=== PATIENT | female | born 1970 | race Caucasian/White ===

== ENCOUNTER 2017-06-25 19:32 | Emergency (ER) | payer OTHER ==
[~2017-06-25] VITALS: Ht 167.6 cm; Wt 72.6 kg
[2017-06-25] MEDS ORDERED: IV NORMAL SALINE 1000ML BAG 1,000 ML IV ONE (19:45)
[2017-06-25] MEDS ORDERED: HALOPERIDOL LACTATE 5 MG/ML VIAL. IVP ONE ×2 (19:45→21:00)
[2017-06-25 19:53] LABS: HEMATOCRIT 42.9 % (36.0-47.0); HEMOGLOBIN 14.6 g/dL (12.0-15.5); RED BLOOD COUNT 4.93 x10^6/uL (3.50-5.40); WHITE BLOOD COUNT 9.6 x10^3/uL (4.0-11.0)
[2017-06-25 19:54] LABS: BASO # 0.1 x10^3/uL (0.0-0.2); BASO % 1 % (0-3); EOS % 2 % (0-3); LYMPH # 1.5 x10^3/uL (1.0-4.8); LYMPH % 16 % (24-48); MEAN CORPUSCULAR HEMOGLOBIN 30 pg (25-35); MEAN CORPUSCULAR HGB CONC 34 g/dL (31-37); MEAN CORPUSCULAR VOLUME 87 fL (79-100); MONO % 6 % (0-9); NEUT % 75 % (31-73); PLATELET COUNT 314 x10^3/uL (140-400); RED CELL DISTRIBUTION WIDTH 14.1 % (11.5-14.5)
[2017-06-25 20:05] LABS: CALCIUM 9.1 mg/dL (8.5-10.1); CREATININE 0.7 mg/dL (0.6-1.0); GFR 90.5
[2017-06-25 20:06] LABS: NEG OBC SER NEG; POS OBC SER POS
[2017-06-25 20:10] LABS: ALBUMIN 3.9 g/dL (3.4-5.0); ALBUMIN/GLOBULIN RATIO 1.1 (1.0-1.7); TOTAL BILIRUBIN 0.3 mg/dL (0.2-1.0); TOTAL PROTEIN 7.4 g/dL (6.4-8.2)
[2017-06-25] MEDS ORDERED: KETOROLAC 15 MG/ML VIAL. IV ONE (21:00)
[2017-06-25 21:30] LABS: BILIRUBIN,URINE NEGATIVE (NEG); GLUCOSE,URINE NEGATIVE (NEG); NITRITE,URINE NEGATIVE (NEG); PROTEIN,URINE NEGATIVE (NEG-TRACE); UROBILINOGEN,URINE 0.2 mg/dL (0.2 mg/dL)
[2017-06-25 21:41] LABS: BACTERIA,URINE 0 /HPF (0-FEW); RBC,URINE 0 /HPF (0-2); SQUAMOUS EPITHELIAL CELL,UR OCC /LPF; WBC,URINE OCC /HPF (0-4)
[2017-06-25 21:43] LABS: BARBITURATES NEG (NEG); BENZODIAZEPINES NEG (NEG); CANNABINOIDS POS (NEG); COCAINE POS (NEG); METHADONE NEG (NEG); OPIATES NEG (NEG); PHENCYCLIDINE NEG (NEG)
--- NOTE | 2017-06-25 21:43 | ED.ADGEN ---
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 His located right anterior superior chest and reproduces with right shoulder use, deep breathing and movement. Patient reports continuous pain for the past 2 days. She denies shortness breath, nausea , vomiting and fever. Denies abdominal pain flank pain. Patient also reports history of lymphoma with biopsy at 2 months ago. Patient is awaiting to start chemotherapy, but needs to be drug-free prior to being scheduled to start chemotherapy. Patient denies any other acute symptoms or complaints. Patient states she relapsed 2 months ago and has used IV methamphetamines on a routine basis and last used over 2 weeks ago. She denies alcohol use. Review of Systems Review of Systems ROS as per HPI. Current Medications Current Medications Current Medications Medications (Trade) Dose Ordered Sig/Carlitos Start Time Stop Time Status Last Admin Dose Admin Haloperidol Lactate (Haldol) 1.25 mg 1X ONCE 06/25/17 21:00 06/25/17 21:01 DC 06/25/17 21:15 1.25 MG Ketorolac Tromethamine (Toradol) 15 mg 1X ONCE 06/25/17 21:00 06/25/17 21:01 DC 06/25/17 21:15 15 MG Sodium Chloride 1,000 ml @ 1,000 mls/hr 1X ONCE 06/25/17 19:45 06/25/17 20:44 DC 06/25/17 20:13 1,000 MLS/HR Allergies Allergies Allergies Coded Allergies Type Severity Reaction Last Updated Verified Penicillins Allergy Unknown "i dont remember" 06/25/17 Yes aripiprazole Allergy Unknown "parkinsons like" side effects 06/25/17 Yes morphine Allergy Unknown violent outbursts "i turn in to an asshole" 06/25/17 Yes Physical Exam Physical Exam Constitutional: Well developed, well nourished, anxious. HENT: Normocephalic, atraumatic, bilateral external ears normal, oropharynx moist, no oral exudates, nose normal. Eyes: PERRLA, EOMI, conjunctiva normal. Neck: Normal range of motion, no tenderness. Cardiovascular:Heart rate regular rhythm, no murmur. Lungs & Thorax: Bilateral breath sounds clear to auscultation. Abdomen: Bowel sounds normal, soft, no tenderness. Skin: Popping lesions present. Bilateral upper extremities. Back: No tenderness. Extremities: No tenderness, track feliciano on bilateral upper extremities. Neurologic: Alert and oriented X 3, normal motor function, normal sensory function, no focal deficits noted. Psychologic: Affect normal, judgement normal, mood normal. Current Patient Data Vital Signs Vital Signs Date Time Temp Pulse Resp B/P (MAP) Pulse Ox O2 Delivery O2 Flow Rate FiO2 06/25/17 19:33 98.7 80 24 152/88 (109) 98 Room Air 98.7 Lab Values Laboratory Tests Test 06/25/17 19:10 White Blood Count 9.6 x10^3/uL (4.0-11.0) Red Blood Count 4.93 x10^6/uL (3.50-5.40) Hemoglobin 14.6 g/dL (12.0-15.5) Hematocrit 42.9 % (36.0-47.0) Mean Corpuscular Volume 87 fL (79-100) Mean Corpuscular Hemoglobin 30 pg (25-35) Mean Corpuscular Hemoglobin Concent 34 g/dL (31-37) Red Cell Distribution Width 14.1 % (11.5-14.5) Platelet Count 314 x10^3/uL (140-400) Neutrophils (%) (Auto) 75 % (31-73) H Lymphocytes (%) (Auto) 16 % (24-48) L Monocytes (%) (Auto) 6 % (0-9) Eosinophils (%) (Auto) 2 % (0-3) Basophils (%) (Auto) 1 % (0-3) Neutrophils # (Auto) 7.2 x10^3uL (1.8-7.7) Lymphocytes # (Auto) 1.5 x10^3/uL (1.0-4.8) Monocytes # (Auto) 0.6 x10^3/uL (0.0-1.1) Eosinophils # (Auto) 0.2 x10^3/uL (0.0-0.7) Basophils # (Auto) 0.1 x10^3/uL (0.0-0.2) D-Dimer (Laura) 0.47 ug/mlFEU (0.00-0.50) Sodium Level 140 mmol/L (136-145) Potassium Level 4.0 mmol/L (3.5-5.1) Chloride Level 102 mmol/L (98-107) Carbon Dioxide Level 26 mmol/L (21-32) Anion Gap 12 (6-14) Blood Urea Nitrogen 17 mg/dL (7-20) Creatinine 0.7 mg/dL (0.6-1.0) Estimated GFR (Cockcroft-Gault) 90.5 BUN/Creatinine Ratio 24 (6-20) H Glucose Level 135 mg/dL (70-99) H Calcium Level 9.1 mg/dL (8.5-10.1) Total Bilirubin 0.3 mg/dL (0.2-1.0) Aspartate Amino Transferase (AST) 30 U/L (15-37) Alanine Aminotransferase (ALT) 45 U/L (14-59) Alkaline Phosphatase 102 U/L (46-116) Troponin I Quantitative < 0.017 ng/mL (0.000-0.055) Total Protein 7.4 g/dL (6.4-8.2) Albumin 3.9 g/dL (3.4-5.0) Albumin/Globulin Ratio 1.1 (1.0-1.7) Lipase 119 U/L (73-393) Serum Test, Qualitative Negative (NEG) Ethyl Alcohol Level < 10 mg/dL (0-10) Laboratory Tests 06/25/17 19:10 Laboratory Tests 06/25/17 19:10 EKG EKG [EKG: Normal sinus rhythm, rate 85, no acute ST-T wave changes, QTC 428.] Radiology/Procedures Radiology/Procedures [Chest x-ray couldn't: No acute cardiopulmonary disease per preliminary ED review.] Course & Med Decision Making Course & Med Decision Making Pertinent Labs and Imaging studies reviewed. (See chart for details) [Atypical chest wall pain. All ball and Toradol given with symptomatic relief. Patient is not tachycardic, hypoxic or tachypnea. Chest x-ray, lab work is unremarkable.] Dragon Disclaimer Dragon Disclaimer This electronic medical record was generated, in whole or in part, using a voice recognition dictation system. ABEL JEAN DO Jun 25, 2017 21:43
--- NOTE | 2017-06-26 01:22 | RAD ---
Chest AP only: Reason for examination: Chest pain and right arm pain for 2 days. Patient is a meth user. The heart size is normal. Mediastinum is unremarkable. Lung montoya are clear. No acute bony abnormalities are seen. Impression: No acute cardiopulmonary disease. Nuclear medicine Ventilation/perfusion scan: Ventilation scan was performed using 17.5 mCi of xenon-133 gas with anterior and posterior images obtained. Perfusion scan was performed using 5.5 mCi of technetium 99m MAA with standard 8 projections obtained. The ventilation scan shows homogeneous activity on single breath and equilibrium phase images. There appears be good washout. Perfusion scan shows no perfusion defects. There is no ventilation/perfusion mismatch. IMPRESSION: No ventilation/perfusion mismatch. Low probability of pulmonary embolus. Electronically signed by: Asha Barbosa MD (06/26/2017 1:19 AM) [facility]
[2017-06-26 01:30] VITALS: BP 158/69
--- NOTE | 2017-06-26 06:20 | EKG ---
[facility] [address] [place] [address] Test Date: 2017-06-25 Test Time: 19:36:34 Pat Name: MARYBEL VARELA Department: Room: Gender: F Classifier Operator: : [id number] Requested By: ABEL JEAN Order Number: [id number] Reading MD: Yonatan Barry Measurements Intervals [place] Rate: 83 P: 16 MO: 166 QRS: 67 QRSD: 80 T: 42 QT: 364 QTc: 428 Interpretive Statements SINUS RHYTHM QRS(T) CONTOUR ABNORMALITY CANNOT RULE OUT ANTEROSEPTAL MYOCARDIAL DAMAGE Electronically Signed On 06-28-2017 15:00:16 CDT by Yonatan Barry
== END 2017-06-26 01:45 | disposition home or self-care (01) ==
LOC: ER 19:32
DX: R07.89 Other chest pain (principal); F41.9 Anxiety disorder, unspecified; F31.9 Bipolar disorder, unspecified; F20.9 Schizophrenia, unspecified; F15.10 Other stimulant abuse, uncomplicated; F12.10 Cannabis abuse, uncomplicated; F10.10 Alcohol abuse, uncomplicated; Z88.8 Allergy status to other drugs, medicaments and biological substances; Z88.5 Allergy status to narcotic agent; Z88.0 Allergy status to penicillin
CPT/HCPCS: 36415; 71010; 78582; 80053; 80307; 81001; 83690; 84484; 84703; 85027; 85379; 87040; 87086; 93005; 96361; 96374; 96375; 96376; 99285; A9540; A9558; G0480; J1630; J1885; J7030; G0479